=== PATIENT | male | born 1965 | race Caucasian/White ===

== ENCOUNTER 2016-05-31 10:23 | Emergency (ER) | payer OTHER ==
[~2016-05-31] VITALS: Ht 182.9 cm; Wt 108.2 kg
[2016-05-31 10:35] VITALS: TEMP 36.5; Ht 182.9 cm; Wt 108.2 kg
[2016-05-31] MEDS ORDERED: NAPR1TAB9 PO (10:50)
[2016-05-31] MEDS ORDERED: ONDANSETRON INJ 2 MG/ML 2 ML VIAL IV STA (11:12)
[2016-05-31] MEDS ORDERED: SODIUM CHLORIDE 0.9% 1000ML 1,000 ML IV STA (11:30)
[2016-05-31] MEDS ORDERED: MULTI-VITAMIN INFUSION INJ 10 ML, THIAMINE HCL INJ 100 MG, FoLIC ACID INJ 1 MG in SODIU... IV ONE (11:30)
[2016-05-31] MEDS ORDERED: LORAZEPAM 2 MG/ML 1 ML VIAL IV STA (11:50)
[2016-05-31 12:06] LABS: BASO % 0.3 %; BASO ABS # 0.03 K/uL (0-0.2); COMPLETE YES; HEMATOCRIT 42.3 % (42-52); IG% 0.3 %; LYMPH % 4.9 %; LYMPH ABS # 0.49 K/uL (1.2-3.4); MEAN CELL VOLUME 89.2 fL (80-100); MEAN CORPUSCULAR HGB CONC 34.8 g/dl (32-36); MEAN PLATELET VOLUME 10.4 fL (7.4-10.4); MONO % 1.9 %; NEUT % 92.6 %; PLATELET COUNT 108 K/uL (130-400); RED BLOOD COUNT 4.74 M/uL (4.7-6.1); WHITE BLOOD COUNT 9.97 K/uL (4.8-10.8)
[2016-05-31 12:09] LABS: URINE APPEARANCE CLEAR (CLEAR); URINE BILIRUBIN NEG (NEG); URINE COLOR DK YELLOW; URINE NITRITE NEG (NEG); UROBILINOGEN NEG (NEG); ZZUR CULT IF INDIC CLEAN CATCH NO
[2016-05-31 12:12] LABS: MANUAL MICROSCOPIC REQUIRED? NO; REVIEW REQ? NO
[2016-05-31 12:40] LABS: CALCIUM 8.8 mg/dl (8.5-10.1); CREATININE 0.9 mg/dl (0.60-1.40); MAGNESIUM 1.7 mg/dl (1.8-2.4)
[2016-05-31 12:49] LABS: ALB/GLOB RATIO 1.1 (0.9-2); BETA-HYDROXYBUTYRATE 34.29 mg/dL (0.2-2.81); PHOSPHORUS 3.1 mg/dl (2.5-4.9)
[2016-05-31] MEDS ORDERED: HYDROmorphone INJ 0.5 MG/0.5 ML SYR IV STA (13:45)
[2016-05-31] MEDS ORDERED: PROM25TA9 PO (14:16)
[2016-05-31] MEDS ORDERED: ATV/1 PO (14:16)
[2016-05-31 14:27] VITALS: BP 171/121; PULSE 116; O2SAT 96
--- NOTE | 2016-05-31 20:30 | EMERGENCY ROOM VISIT NOTE ---
History First contact with patient: 11:30 Chief Complaint: VOMITING Stated Complaint: VOMITING Nursing Triage Summary: vomiting and abdominal pain started yesterday "out of the blue" patient is shaking in triage. I drink alchol daily. I think I am going through detox right now. drinks at least "a 6 pack a day" hasnt had anything to drink since yesterday morning. History of Present Illness The patient is a 50 year old male who presents to the Emergency Room with complaints of alcohol withdrawal. The patient reports a lifetime history of alcohol abuse. Drinking when he was 16. He is currently drinking a sixpack of beer daily. The patient does admit to binge drinking this past Tuesday for [employer]. He reports that his last alcohol consumption was yesterday afternoon. The patient reports that he has gone through detox several times in the past with his last detox in 1998. The patient has had delirium tremens in the past. He denies any prior history of seizures. He denies illicit drug use. The patient denies any other recent illnesses. Today he is complaining of nausea, vomiting and "bad tremors". The patient reports feeling extremely dehydrated as well. He rates his overall discomfort a 10 out of 10. Review of Systems HEENT: Denies dizziness, visual problems, hearing loss, tinnitus. Denies difficulty swallowing or oral lesions. PULMONARY: Denies cough, shortness of breath, sputum production or hemoptysis. CARDIOVASCULAR: Denies chest pain, palpitations, dyspnea on exertion, orthopnea or peripheral edema. GASTROINTESTINAL: Denies diarrhea for constipation, otherwise see history of present illness. GENITOURINARY: Denies dysuria, frequency, urgency or nocturia. NEUROLOGIC: Denies history of epilepsy, CVA, TIA or chronic headaches. MUSCULOSKELETAL: Denies history of joint tenderness/swelling. SKIN: Denies rashes or lesions. PSYCHIATRIC: Denies history of depression or mental illness. ENDOCRINE: Denies history of diabetes or thyroid disorders. Past Medical/Surgical History Medical Problems: (1) Alcohol dependence (2) Diab Catherine Wo Compl, Type Ii Or Unspec Type, Not Uncntrld (3) Hyperlipidemia Nec/Nos (4) Hypertension Nos Surgical Problems: (1) Percutaneous Translum Coron Angioplasty Status Social History Problems: (1) Alcohol abuse Family History Unremarkable Social History Smoking Status: Never Smoker Alcohol Use: heavy Marital Status: single Housing Status: lives alone Occupation Status: employed Current/Historical Medications Scheduled Lorazepam (Ativan), 1 TAB PO q6-8h Naproxen (Aleve), 220 MG PO PRN Scheduled PRN Promethazine Hcl (Phenergan), 25 MG PO Q4H PRN for Nausea Allergies Coded Allergies: No Known Allergies (Unverified , 05/31/16) Physical Exam Vital Signs Date Time Temp Pulse Resp B/P Pulse Ox O2 Delivery O2 Flow Rate FiO2 05/31/16 14:27 116 23 171/121 96 Room Air 05/31/16 12:50 120 05/31/16 12:29 104 22 159/102 96 Room Air 05/31/16 10:35 36.5 120 18 163/114 94 Room Air Physical Exam CONSTITUTIONAL: Healthy and well nourished. Alert and oriented X 3 with positive affect. Patient is mildly diaphoretic. HEENT: Normocephalic, atraumatic. Pupils equal, round and reactive. Ears and nares are clear. No scleral icterus. OROPHARYNX: Mucous membranes are dry. No tonsillar hypertrophy or exudates. NECK: Full active range of motion without discomfort. RESPIRATORY: Clear to auscultation bilaterally with no wheezing, crackles, rhonchi or stridor. CARDIOVASCULAR: Tachycardic with no murmurs, rubs or gallops. GASTROINTESTINAL: Bowel sounds present in all quadrants. Minimal epigastric tenderness to palpation. No rigidity, guarding or rebound. No obvious hepatosplenomegaly. Negative CVA tenderness. The patient was unable to provide a stool sample for stool Hemoccult. He refused digital rectal exam. MUSCULOSKELETAL: Full range of motion of all joints without discomfort. INTEGUMENTARY: No rash or other significant dermatologic conditions noted. HEMATOLOGIC: No ecchymosis or petechiae. NEUROLOGIC: Cranial nerves II-XII grossly intact. Generalized tremors are noted. Medical Decision & Procedures Laboratory Results 05/31/16 11:45 Red Blood Count 4.74, Mean Corpuscular Volume 89.2, Mean Corpuscular Hemoglobin 31.0, Mean Corpuscular Hemoglobin Concent 34.8, Mean Platelet Volume 10.4, Neutrophils (%) (Auto) 92.6, Lymphocytes (%) (Auto) 4.9, Monocytes (%) (Auto) 1.9, Eosinophils (%) (Auto) 0.0, Basophils (%) (Auto) 0.3, Neutrophils # (Auto) 9.23, Lymphocytes # (Auto) 0.49, Monocytes # (Auto) 0.19, Eosinophils # (Auto) 0.00, Basophils # (Auto) 0.03 05/31/16 11:45 Test 05/31/16 10:55 05/31/16 11:45 Urine Color DK YELLOW Urine Appearance CLEAR (CLEAR) Urine pH 5.0 (4.5-7.5) Urine Specific [place] 1.030 (1.000-1.030) Urine Protein 2+ (NEG) Urine Glucose (UA) NEG (NEG) Urine Ketones 4+ (NEG) Urine Occult Blood NEG (NEG) Urine Nitrite NEG (NEG) Urine Bilirubin NEG (NEG) Urine Urobilinogen NEG (NEG) Urine Leukocyte Esterase NEG (NEG) Urine WBC (Auto) 1-5 /hpf (0-5) Urine RBC (Auto) 0-4 /hpf (0-4) Urine Hyaline Casts (Auto) 1-5 /lpf (0-5) Urine Epithelial Cells (Auto) 10-20 /lpf (0-5) Urine Bacteria (Auto) NEG (NEG) White Blood Count 9.97 K/uL (4.8-10.8) Red Blood Count 4.74 M/uL (4.7-6.1) Hemoglobin 14.7 g/dL (14.0-18.0) Hematocrit 42.3 % (42-52) Mean Corpuscular Volume 89.2 fL (80-100) Mean Corpuscular Hemoglobin 31.0 pg (25-34) Mean Corpuscular Hemoglobin Concent 34.8 g/dl (32-36) Platelet Count 108 K/uL (130-400) Mean Platelet Volume 10.4 fL (7.4-10.4) Neutrophils (%) (Auto) 92.6 % Lymphocytes (%) (Auto) 4.9 % Monocytes (%) (Auto) 1.9 % Eosinophils (%) (Auto) 0.0 % Basophils (%) (Auto) 0.3 % Neutrophils # (Auto) 9.23 K/uL (1.4-6.5) Lymphocytes # (Auto) 0.49 K/uL (1.2-3.4) Monocytes # (Auto) 0.19 K/uL (0.11-0.59) Eosinophils # (Auto) 0.00 K/uL (0-0.5) Basophils # (Auto) 0.03 K/uL (0-0.2) RDW Standard Deviation 42.6 fL (36.4-46.3) RDW Coefficient of Variation 13.1 % (11.5-14.5) Immature Granulocyte % (Auto) 0.3 % Immature Granulocyte # (Auto) 0.03 K/uL (0.00-0.02) Anion Gap 16.0 mmol/L (3-11) Est Creatinine Clear Calc Drug Dose 124.8 ml/min Estimated GFR () 115.0 Estimated GFR (Non- 99.2 BUN/Creatinine Ratio 19.0 (10-20) Calcium Level 8.8 mg/dl (8.5-10.1) Phosphorus Level 3.1 mg/dl (2.5-4.9) Magnesium Level 1.7 mg/dl (1.8-2.4) Total Bilirubin 1.6 mg/dl (0.2-1) Aspartate Amino Transf (AST/SGOT) 42 U/L (15-37) Alanine Aminotransferase (ALT/SGPT) 38 U/L (12-78) Alkaline Phosphatase 120 U/L (45-117) Total Protein 8.7 gm/dl (6.4-8.2) Albumin 4.6 gm/dl (3.4-5.0) Globulin 4.1 gm/dl (2.5-4.0) Albumin/Globulin Ratio 1.1 (0.9-2) Lipase 269 U/L (73-393) Beta-Hydroxybutyric Acid 34.29 mg/dL (0.2-2.81) Ethyl Alcohol mg/dL 24.0 mg/dl (0-3) The above labs were reviewed. It'll alcohol level was 24. Ketones are over 34. Anion gap is 16. Creatinine is normal. Magnesium is 1.7. AST is elevated at 42. Alkaline phosphatase 120. Medications Administered Medications (Trade) Dose Ordered Sig/Jyotsna Route Start Time Stop Time Status Last Admin Dose Admin Ondansetron HCl 4 mg 4 mg NOW STAT IV 05/31/16 11:12 05/31/16 11:13 DC 05/31/16 11:18 4 MG Multivitamins 10 ml/Thiamine HCl 100 mg/Folic Acid 1 mg/Sodium Chloride 1,011.2 ml @ 500 mls/ hr Q2H2M ONCE IV 05/31/16 11:30 05/31/16 13:31 DC 05/31/16 11:51 500 MLS/HR Sodium Chloride (Nss 1000ml) 1,000 ml @ 999 mls/hr Q1H1M STAT IV 05/31/16 11:30 05/31/16 12:30 DC 05/31/16 12:00 999 MLS/HR Lorazepam (Ativan Inj) 1 mg NOW STAT IV 05/31/16 11:50 05/31/16 11:51 DC 05/31/16 11:58 1 MG Procedure 1. IV hydration: The patient received a liter normal saline, and a banana bag for a total of 2 L of normal saline. 2. IV medications: Zofran 4 mg and Ativan 1 mg IVP. ED Course Patient history and physical exam were performed. Nurse's notes were reviewed. Vital signs were reviewed, showing a blood pressure 163/114. Pulse rate is 120. O2 saturation 94% on room air. The patient is afebrile. Patient appears in moderate discomfort from tremors and nausea. He is holding an emesis bag. IV access was established, and labs were drawn. The patient was initially hydrated with a liter normal saline, and received IV Zofran and Ativan. A banana bag was also administered. Review of labs shows markedly elevated ketones and increased anion gap. Creatinine is normal. He has other mild electrolyte abnormalities as well. She refused digital rectal exam first Hemoccult, and was unable to provide a stool sample. The case was further discussed with Dr. Jeffries, ED attending physician, who suggested hospitalist evaluation. I did discuss the case further with the patient. The patient is refusing hospice evaluation, observation or alcohol detox. The patient reports that he has 2 dogs at home and has to go home at this time. I did explain my concern, including high risk for delirium tremens. The patient reports that he has gone through this before, and feels comfortable going home to detox himself. At this point, I did call [facility] and spoke with his physician, who will try to get him back into the office within the next 24-48 hours. She did request that I prescribe some Ativan as well. The patient was also provided a prescription for Phenergan for the nausea. I also explained that he has had some recent dark stools, likely from an upper GI bleed from his alcohol use. He is currently hemodynamically stable. The patient was instructed to return to the emergency department immediately for any further concerns. The patient voiced understanding of all discharge instructions. Medical Decision Patient has a history of alcohol dependence. He has been through detox several times in the past. The patient's primary concern is for possible delirium tremens. He was administered IV Ativan while in the emergency department. He also received a banana bag. He does have significant serum ketones. The patient is refusing admission at this time. Impression Primary Impression: Alcohol dependence Additional Impression: Upper GI bleed Departure Information Prescriptions Lorazepam (ATIVAN) 1 Mg Tab 1 TAB PO q6-8h, #20 TAB Prov: Roman Delgado PA 05/31/16 Promethazine Hcl (Phenergan) 25 Mg Tab 25 MG PO Q4H Y for Nausea, #20 TAB Prov: Roman Delgado PA 05/31/16 Referrals No Doctor, Assigned (PCP) Patient Instructions [facility] Problem Qualifiers Primary Impression: Alcohol dependence Substance use status: in withdrawal Complication of substance-induced condition: with unspecified complication Qualified Codes: F10.239 - Alcohol dependence with withdrawal, unspecified
[2016-08-10] MEDS ORDERED: CHOL100010 PO (09:18)
[2016-08-10] MEDS ORDERED: PRLSR20 PO (09:18)
== END 2016-05-31 14:27 | disposition home or self-care (01) ==
LOC: C.EDB 10:24 → C.EDC 14:27
DX: F10.239 Alcohol dependence with withdrawal, unspecified (principal); R11.2 Nausea with vomiting, unspecified; K92.2 Gastrointestinal hemorrhage, unspecified; E11.9 Type 2 diabetes mellitus without complications; I10 Essential (primary) hypertension; E78.5 Hyperlipidemia, unspecified

== ENCOUNTER → 2016-10-07 | Outpatient (CLI) | payer OTHER ==
[~2016-10-07] MED LIST: CHOL100010 PO; PRLSR20 PO
[2016-10-07 12:11] LABS: BASO % 0.5 %; BASO ABS # 0.03 K/uL (0-0.2); COMPLETE YES; EOS % 2.7 %; HEMATOCRIT 43.7 % (42-52); IG% 0.3 %; LYMPH % 22.9 %; LYMPH ABS # 1.45 K/uL (1.2-3.4); MEAN CELL VOLUME 93.6 fL (80-100); MEAN CORPUSCULAR HEMOGLOBIN 31.3 pg (25-34); MEAN CORPUSCULAR HGB CONC 33.4 g/dl (32-36); MEAN PLATELET VOLUME 11.1 fL (7.4-10.4); MONO % 8.5 %; NEUT % 65.1 %; PLATELET COUNT 189 K/uL (130-400); RED BLOOD COUNT 4.67 M/uL (4.7-6.1); WHITE BLOOD COUNT 6.33 K/uL (4.8-10.8)
[2016-10-07 13:18] LABS: LYME DISEASE AB IGG NEG (NEG); LYME DISEASE AB IGM NEG (NEG)
[2016-10-07 13:43] LABS: ALKALINE PHOSPHATASE 104 U/L (45-117); ALT/SGPT 30 U/L (12-78); AST/SGOT 30 U/L (15-37); BLOOD UREA NITROGEN 16 mg/dl (7-18); BUN/CREATININE RATIO 18.5 (10-20); C-REACTIVE PROTEIN 0.59 mg/dl (0-0.29); CALCIUM 9.2 mg/dl (8.5-10.1); CARBON DIOXIDE 27 mmol/L (21-32); CHLORIDE 104 mmol/L (98-107); CHOLESTEROL 187 mg/dl (0-200); CREATININE 0.88 mg/dl (0.60-1.40); GLUCOSE 104 mg/dl (70-99); POTASSIUM 3.7 mmol/L (3.5-5.1); SODIUM 140 mmol/L (136-145); TRIGLYCERIDES 493 mg/dl (0-150)
[2016-10-07 13:47] LABS: HDL CHOLESTEROL 31 mg/dl; THYROID STIMULATING HORMONE 0.985 uIu/ml (0.300-4.500)
== END | disposition home or self-care (01) ==
LOC: C.LABPVFM 07:31
PROVIDERS: ATTEND Nurse Practitioner Family
DX: M79.671 Pain in right foot (principal); M79.672 Pain in left foot

== ENCOUNTER → 2016-10-14 | Outpatient (CLI) | payer OTHER ==
--- NOTE | 2016-10-14 08:57 | DIAGNOSTIC IMAGING REPORT ---
LEFT KNEE 3 VIEWS CLINICAL HISTORY: 51 years-old Male presenting with BILATERAL KNEE PAIN. TECHNIQUE: Frontal, lateral, and sunrise views of the left knee were obtained. COMPARISON: None. FINDINGS: Intramedullary tabatha and 2 interlocking screw fixation of the distal femoral metadiaphysis. No apparent hardware complication. Deformity and chronic periosteal reaction along the proximal tibial metaphysis possibly posttraumatic deformity or secondary to chronic osteomyelitis. Bony spurring at the insertion of the patellar tendon may indicate tendinous injury. Irregularity of the tibial metaphysis limits evaluation for acute osseous injury. Knee joint congruent. No acute fracture or malalignment. Patellofemoral articulation normal. No large effusion. IMPRESSION: 1. No convincing evidence of acute osseous injury of the left knee. 2. Postsurgical changes of the distal femur. 3. Chronic deformity of the proximal tibial metaphysis. Electronically signed by: Froylan Ayon M.D. 10/14/2016 8:55 AM Dictated Date/Time: 10/14/2016 8:51 AM
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
[2016-10-14 13:07] LABS: ESTIMATED AVERAGE GLUCOSE 123 mg/dl; HA1C FLAG Normal (Normal)
== END | disposition home or self-care (01) ==
LOC: C.RADPV 08:24
PROVIDERS: ATTEND Nurse Practitioner Family
DX: M25.561 Pain in right knee (principal); M25.562 Pain in left knee; R73.01 Impaired fasting glucose; E55.9 Vitamin D deficiency, unspecified

== ENCOUNTER → 2017-02-22 | Outpatient (CLI) | payer OTHER ==
[2017-02-22 18:47] LABS: BLOOD UREA NITROGEN 13 mg/dl (7-18); BUN/CREATININE RATIO 15.3 (10-20); CALCIUM 8.9 mg/dl (8.5-10.1); CARBON DIOXIDE 26 mmol/L (21-32); CHLORIDE 101 mmol/L (98-107); CREATININE 0.88 mg/dl (0.60-1.40); GLUCOSE 104 mg/dl (70-99); POTASSIUM 3.6 mmol/L (3.5-5.1); SODIUM 136 mmol/L (136-145)
[2017-02-24 17:21] LABS: ALBUMIN 4.4 G/DL (3.8-4.8); TOTAL PROTEIN 7.3 G/DL (6.2-8.3)
== END | disposition home or self-care (01) ==
LOC: C.LABPVFM 10:46
PROVIDERS: ATTEND Psychiatry & Neurology Neurology
DX: F10.10 Alcohol abuse, uncomplicated (principal); E55.9 Vitamin D deficiency, unspecified; I10 Essential (primary) hypertension; G62.9 Polyneuropathy, unspecified

== ENCOUNTER → 2017-02-23 | Outpatient (CLI) | payer OTHER ==
--- NOTE | 2017-02-23 14:38 | DIAGNOSTIC IMAGING REPORT ---
CT L LOWER EXTREMITY WITHOUT CT DOSE: CLINICAL HISTORY: Left ankle pain. Osteoarthritis. TECHNIQUE: Helical images were acquired in transverse plane. Sagittal and axial reformatted images were acquired. A dose lowering technique was utilized adhering to the principles of ALARA. COMPARISON STUDY: Conventional radiographic study performed November 2013 FINDINGS: There is is a distal fibular metallic plate. There are multiple screw tracks within the hindfoot secondary to a prior arthrodesis, with hardware removal. There is a screw fragment within the talus. There is evidence for a subtalar fusion. There is evidence for a calcaneocuboid fusion. There is partial fusion of the talo navicular joint. There are mild to moderate arthritic changes within the tibiotalar joint. There are moderately advanced arthritic changes within the tarsometatarsal joints. No acute fractures are visualized. No soft tissue masses are evident. Corticated bony fragments adjacent to medial malleolus are felt to be old. IMPRESSION: Postsurgical and arthritic changes as described above. Electronically signed by: Glenn Sauceda M.D. 02/23/2017 2:37 PM Dictated Date/Time: 02/23/2017 2:30 PM
== END | disposition home or self-care (01) ==
LOC: C.CTS 14:07
PROVIDERS: ATTEND Orthopaedic Surgery Sports Medicine
DX: M19.072 Primary osteoarthritis, left ankle and foot (principal)